=== PATIENT | female | born 1940 | race Two or more races ===

== ENCOUNTER 2025-04-02 02:12 | Emergency (ER) | payer OTHER ==
[~2025-04-02] VITALS: Ht 167.6 cm; Wt 76.2 kg
[2025-04-02] MEDS ORDERED: DONEPEZIL HCL O10 MG PO (02:25)
[2025-04-02] MEDS ORDERED: AVAPRO300 MG PO (02:25)
[2025-04-02] MEDS ORDERED: GLIPIZIDE ER5 MG PO (02:25)
[2025-04-02] MEDS ORDERED: PROTONIX40 M1 PO (02:25)
[2025-04-02] MEDS ORDERED: ELIQUIS5 MG PO (02:25)
[2025-04-02] MEDS ORDERED: COZAAR50 MG PO (02:26)
[2025-04-02] MEDS ORDERED: GLIPIZIDE XL10 MG PO (02:26)
[2025-04-02] MEDS ORDERED: LIPITOR20 MG PO (02:26)
[2025-04-02] MEDS ORDERED: TOPROL XL100 M1 PO (02:26)
[2025-04-02] MEDS ORDERED: KETOROLAC TROMETHAMINE 60 MG VIAL IM ONE ×2 (03:00→03:03)
[2025-04-02] MEDS ORDERED: ORPHENADRINE CITRATE 30 MG/ML AMPUL ONE (03:03)
[2025-04-02] MEDS ORDERED: ACETAMINOPHEN 500 MG GEL..CAP PO ONE ×2 (03:03→03:15)
[2025-04-02] MEDS ORDERED: PEPCID20 MG PO (03:10)
[2025-04-02] MEDS ORDERED: IBU600 MG PO (03:10)
[2025-04-02] MEDS ORDERED: CYCLOBENZAPRINE5 MG PO (03:10)
[2025-04-02] MEDS ORDERED: ORPHENADRINE CITRATE 30 MG/ML AMPUL IM ONE (03:15)
== END 2025-04-02 03:20 | disposition home or self-care (01) ==
LOC: ER 02:12
DX: M54.50 Low back pain, unspecified (principal); I10 Essential (primary) hypertension; I48.91 Unspecified atrial fibrillation; E11.9 Type 2 diabetes mellitus without complications; Z79.84 Long term (current) use of oral hypoglycemic drugs
CPT/HCPCS: 93005; 96372; 99283; J1885; J2360